=== PATIENT | female | born 1975 | race Caucasian/White ===

== ENCOUNTER 2016-06-21 15:00 | Emergency (ER) | payer MEDICARE, BC ==
[2016-06-21] MEDS ORDERED: PROMETHAZINE HCL 25 MG/ML VIAL IM ONE (16:16)
[2016-06-21] MEDS ORDERED: ORPHENADRINE CITRATE 60MG/2ML VIAL IM ONE (16:16)
[2016-06-21] MEDS ORDERED: METHYLPREDNISOLONE PF 125MG/VIAL IM ONE (16:16)
--- NOTE | 2016-06-21 17:58 | Emergency Department Record ---
History of Present Illness - General Chief Complaint: Neck Injury/Pain Stated Complaint: HEAD/NECK PAIN Time Seen by Provider: 06/21/16 16:08 Source: Patient Mode of Arrival: Ambulatory Limitations: No limitations - History of Present Illness Initial Comments: pt had a rhizotomy at [facility] 3 days ago and has had pain in her neck and a headache ever since. the headache is similar to those she gets. she stated that she was poked numerous times in the side of her neck for the procedure and this is where she is sore. MD Complaint: Neck pain Onset/Timin -: Days(s) Radiation: Left lateral Severity: Moderate Severity scale (1-10): 10 Quality: Stabbing Consistency: Constant Improves With: None Worsens With: None Associated Symptoms: Nausea Treatments Prior to Arrival: Acetaminophen Treatment Prior to Arrival Comment:: Tylenol taken at 1230 - Related Data Home Medications Medication Instructions Recorded Confirmed Last Taken Alprazolam [Xanax] 1 mg PO TID PRN 08/10/14 03/23/16 1 Day Ago Divalproex Sodium [Depakote] 500 mg PO QHS 08/26/14 03/23/16 1 Day Ago Duloxetine HCl [Cymbalta] 60 mg PO DAILY 08/03/15 03/23/16 1 Day Ago Allergies Allergy/AdvReac Type Severity Reaction Status Date / Time diphenhydramine HCl Allergy Intermediate BEHAVIORAL Verified 06/13/15 16:25 [From Benadryl] CHANGES ibuprofen [From Motrin] Allergy Intermediate RASH Verified 06/13/15 16:25 ketorolac tromethamine Allergy Intermediate RASH Verified 06/13/15 16:25 meperidine HCl Allergy Intermediate RASH Verified 06/13/15 16:25 Travel Screening - Travel/Exposure Within Last 30 Days Have you traveled within the last 30 days?: No - Travel/Exposure Within Last Year Have you traveled outside the [place] in the last year?: No - Additonal Travel Details Have you been exposed to anyone with a communicable illness?: No Review of Systems Reviewed: No additional complaints except as noted below Constitutional: Reports: As per HPI. Denies: Chills, Fever, Malaise, Night sweats, Weakness, Weight change Eyes: Reports: As per HPI. Denies: Eye discharge, Eye pain, Photophobia, Vision change ENT: Reports: As per HPI. Denies: Congestion, Dental pain, Ear pain, Epistaxis , Hearing loss, Throat pain Respiratory: Reports: As per HPI. Denies: Cough, Dyspnea, Hemoptysis, Stridor, Wheezes Cardiovascular: Reports: As per HPI. Denies: Arrhythmia, Chest pain, Dyspnea on exertion, Edema, Murmurs, Orthopnea, Palpitations, Paroxysmal nocturnal dyspnea, Rheumatic Fever, Syncope Endocrine: Reports: As per HPI. Denies: Fatigue, Heat or cold intolerance, Polydipsia, Polyuria Gastrointestinal: Reports: As per HPI. Denies: Abdominal pain, Constipation, Diarrhea, Hematemesis, Hematochezia, Melena, Nausea, Vomiting Genitourinary: Reports: As per HPI. Denies: Abnormal menses, Discharge, Dyspareunia, Dysuria, Frequency, Hematuria, Incontinence, Retention, Urgency Musculoskeletal: Reports: As per HPI. Denies: Arthralgia, Back pain, Gout, Joint swelling, Myalgia, Neck pain Skin: Reports: As per HPI. Denies: Bruising, Change in color, Change in hair/ nails, Lesions, Pruritus, Rash Neurological: Reports: As per HPI. Denies: Abnormal gait, Confusion, Headache, Numbness, Paresthesias, Seizure, Tingling, Tremors, Vertigo, Weakness Psychiatric: Reports: As per HPI. Denies: Anxiety, Auditory hallucinations, Depression, Homicidal thoughts, Suicidal thoughts, Visual hallucinations Hematological/Lymphatic: Reports: As per HPI. Denies: Anemia, Blood Clots, Easy bleeding, Easy bruising, Swollen glands Past Medical History - SOCIAL HISTORY Smoking Status: Heavy tobacco smoker (>10/day) Alcohol Use: None Drug Use: None - RESPIRATORY Hx Respiratory Disorders: No - CARDIOVASCULAR Hx Cardio Disorders: Yes Hx Deep Vein Thrombosis: Yes (right hand) - NEURO Hx Neuro Disorders: Yes Hx Headaches: Yes Hx Seizures: Yes - GI Hx GI Disorders: No - Hx Genitourinary Disorders: No - ENDOCRINE Hx Endocrine Disorders: No - MUSCULOSKELETAL Hx Musculoskeletal Disorders: Yes Comment:: Herniated disks C2-C7 - PSYCH Hx Psych Problems: Yes Hx Anxiety: Yes Hx Depression: Yes - HEMATOLOGY/ONCOLOGY Hx Hematology/Oncology Disorders: No Family Medical History Any Significant Family History?: Yes Hx Cancer: Mother Hx Diabetes: Father Physical Exam - General General Appearance: Alert, Oriented x3, Cooperative, Mild distress - Head Head exam: Normal inspection - Eye Eye exam: Normal appearance, PERRL, EOMI Pupils: Normal accommodation - ENT ENT exam: Normal exam, Mucous membranes moist, Normal external ear exam, Normal orophraynx Ear exam: Normal external inspection. negative: External canal tenderness Nasal Exam: Normal inspection. negative: Discharge, Sinus tenderness Mouth exam: Normal external inspection, Tongue normal Teeth exam: Normal inspection. negative: Dental caries Throat exam: Normal inspection. negative: Tonsillar erythema, Tonsillar exudate - Neck Neck exam: Full ROM, Tenderness (in musculature), Other (no spinal tenderness) - Respiratory Respiratory exam: Normal lung sounds bilaterally. negative: Respiratory distress - Cardiovascular Cardiovascular Exam: Regular rate, Normal rhythm, Normal heart sounds - GI/Abdominal GI/Abdominal exam: Soft, Normal bowel sounds. negative: Tenderness - Rectal Rectal exam: Deferred - exam: Deferred - Extremities Extremities exam: Normal inspection, Full ROM, Normal capillary refill. negative: Tenderness - Back Back exam: Reports: Normal inspection, Full ROM. Denies: Muscle spasm, Rash noted, Tenderness - Neurological Neurological exam: Alert, CN II-XII intact, Normal gait, Oriented X3 - Psychiatric Psychiatric exam: Normal affect, Normal mood - Skin Skin exam: Dry, Intact, Normal color, Warm Course Vital Signs 06/21/16 06/21/16 15:16 16:38 Temperature 98.3 F Pulse Rate 74 Pulse Rate [ 62 Pulse Ox Probe] Respiratory 15 15 Rate Blood Pressure 114/92 Blood Pressure 121/88 [Left Arm] Pulse Ox 97 95 - Reevaluation(s) Reevaluation #1: 06/21/16 17:59 pt feels much better Disposition Disposition: Discharge Clinical Impression: Somatic dysfunction of cervical region Disposition: Home, Self-Care Condition: (1) Good Instructions: Cervical Spine Strain (ED) Additional Instructions: follow up with family doctor and with pain clinic. return sooner if worse. Forms: Patient Portal Access
== END 2016-06-21 18:08 | disposition home or self-care (01) ==
LOC: ER 15:00
DX: M99.01 Segmental and somatic dysfunction of cervical region (principal); R51 Headache
CPT/HCPCS: 96372; 99283; J2360; J2550; J2930

== ENCOUNTER 2016-06-30 10:14 | Emergency (ER) | payer MEDICARE, BC ==
--- NOTE | 2016-06-30 10:29 | Emergency Department Record ---
History of Present Illness - General Chief Complaint: Neck Injury/Pain Stated Complaint: NECK PAIN AFTER INJECTION Time Seen by Provider: 06/30/16 10:27 Source: Patient Mode of Arrival: Ambulatory Limitations: No limitations - History of Present Illness Initial Comments: The patient is here due to worsening neck pain where she had her Rhizotomy injections. She had an injection about 2 weeks ago and another 4 days ago. Now her pain has been increasing over the last few days. She denies any arm or leg numbness, tingling, or weakness. She also denies any bowel or bladder issues. The patient has a long hx of similar issues and the pain although is worse is not different than her chronic pain. MD Complaint: Neck pain Onset/Timin -: Week(s) Severity scale (1-10): 10 Quality: Stabbing, Other Consistency: Constant Improves With: None Worsens With: None Context: Other Associated Symptoms: None Treatments Prior to Arrival: None - Related Data Home Medications Medication Instructions Recorded Confirmed Last Taken Alprazolam [Xanax] 1 mg PO TID PRN 08/10/14 06/30/16 1 Day Ago Divalproex Sodium [Depakote] 500 mg PO QHS 08/26/14 06/30/16 06/30/16 Duloxetine HCl [Cymbalta] 60 mg PO DAILY 08/03/15 06/30/16 06/30/16 Allergies Allergy/AdvReac Type Severity Reaction Status Date / Time diphenhydramine HCl Allergy Intermediate BEHAVIORAL Verified 06/13/15 16:25 [From Benadryl] CHANGES ibuprofen [From Motrin] Allergy Intermediate RASH Verified 06/13/15 16:25 ketorolac tromethamine Allergy Intermediate RASH Verified 06/13/15 16:25 meperidine HCl Allergy Intermediate RASH Verified 06/13/15 16:25 Travel Screening - Travel/Exposure Within Last 30 Days Have you traveled within the last 30 days?: No - Travel/Exposure Within Last Year Have you traveled outside the [place] in the last year?: No - Additonal Travel Details Have you been exposed to anyone with a communicable illness?: No - Travel Symptoms Symptom Screening: None Review of Systems Constitutional: Denies: Chills, Fever Eyes: Denies: Eye discharge ENT: Denies: Congestion, Throat pain Respiratory: Denies: Cough, Dyspnea Past Medical History - SOCIAL HISTORY Smoking Status: Heavy tobacco smoker (>10/day) Alcohol Use: None Drug Use: None - RESPIRATORY Hx Respiratory Disorders: No - CARDIOVASCULAR Hx Cardio Disorders: Yes Hx Deep Vein Thrombosis: Yes (right hand) - NEURO Hx Neuro Disorders: Yes Hx Headaches: Yes Hx Seizures: Yes - GI Hx GI Disorders: No - Hx Genitourinary Disorders: No - ENDOCRINE Hx Endocrine Disorders: No - MUSCULOSKELETAL Hx Musculoskeletal Disorders: Yes Comment:: Herniated disks C2-C7 - PSYCH Hx Psych Problems: Yes Hx Anxiety: Yes Hx Depression: Yes - HEMATOLOGY/ONCOLOGY Hx Hematology/Oncology Disorders: No Family Medical History Any Significant Family History?: No Hx Cancer: Mother Hx Diabetes: Father Physical Exam - General General Appearance: Alert, Oriented x3, Cooperative, Mild distress - Head Head exam: Atraumatic, Normocephalic, Normal inspection - Eye Eye exam: Normal appearance, PERRL - Neck Neck exam: Normal inspection, Tenderness (There is tenderness to the posterior cervical muscle area where the injections were performed.) - Respiratory Respiratory exam: Normal lung sounds bilaterally. negative: Respiratory distress - Cardiovascular Cardiovascular Exam: Regular rate, Normal rhythm, Normal heart sounds - GI/Abdominal GI/Abdominal exam: Soft, Normal bowel sounds. negative: Tenderness - Extremities Extremities exam: Normal inspection, Full ROM, Normal capillary refill. negative: Tenderness - Neurological Neurological exam: Alert, Normal gait, Oriented X3, Reflexes normal. negative: Abnormal gait, Altered, Motor sensory deficit - Psychiatric Psychiatric exam: Agitated Course Vital Signs 06/30/16 10:18 Temperature 98.8 F Pulse Rate 64 Respiratory 20 Rate Blood Pressure 106/83 Pulse Ox 100 - Reevaluation(s) Reevaluation #1: The patient is doing a little better at this time but is still having pain. I did discuss the issues with her and do feel she will an MRI. I did discuss the case with Dr. Abrams at [facility] and he does accept the patient in an ER to ER transfer. The patient's can drive her over to the ER. 06/30/16 11:31 06/30/16 11:34 Disposition Disposition: Transfer Clinical Impression: Cervical pain (neck) Disposition: Acute Care Hospital Transfer [place] [facility] [place] For Transfer: [place] Accepting Physician: Aliza Time Discussed w/Accepting Physician: 11:33 Condition: (2) Stable Additional Instructions: Please proceed to the [place] at [facility] [place] further eval. Forms: Patient Portal Access Time of Disposition: 11:33
[2016-06-30] MEDS ORDERED: ORPHENADRINE CITRATE 60MG/2ML VIAL IM ONE (10:34)
[2016-06-30] MEDS ORDERED: LIDOCAINE 5% PATCH TOP ONE (10:34)
[2016-06-30] MEDS ORDERED: METHYLPREDNISOLONE PF 125MG/VIAL IM ONE (10:34)
== END 2016-06-30 12:17 | disposition short-term general hospital (02) ==
LOC: ER 10:14
DX: M54.2 Cervicalgia (principal)
CPT/HCPCS: 96372; 99285; J2360; J2930

== ENCOUNTER 2016-11-02 15:10 | Emergency (ER) | payer MEDICARE, BC ==
[2016-11-02] MEDS ORDERED: METHYLPREDNISOLONE PF 125MG/VIAL IM ONE (17:42)
[2016-11-02] MEDS ORDERED: ONDANSETRON HCL IV 4 MG/2 ML VIAL IM ONE (17:42)
[2016-11-02] MEDS ORDERED: ORPHENADRINE CITRATE 60MG/2ML VIAL IM ONE (17:42)
--- NOTE | 2016-11-02 17:48 | Emergency Department Record ---
History of Present Illness - General Chief Complaint: Headache Migraine Stated Complaint: HEADACHE FROM NECK INJECTIONS Time Seen by Provider: 11/02/16 16:33 Source: Patient, RN Mode of Arrival: Ambulatory - History of Present Illness Initial Comments: migraine headache and she had a neck injection [address] 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 No fevers and no vomiting just nausea. MD Complaint: "Migraine" Onset/Timin -: Days(s) Onset Description: Gradual Location: Left, Neck, Temporal Severity: Moderate Severity scale (1-10): 10 Quality: Sharp, Other Consistency: Constant Improves With: Nothing Worsens With: Light, Movement of head/neck Associated Symptoms: Photophobia Treatments Prior to Arrival: Acetaminophen Treatment Prior to Arrival Comment:: 1400 today - Related Data Home Medications Medication Instructions Recorded Confirmed Last Taken Alprazolam [Xanax] 1 mg PO TID PRN 08/10/14 11/02/16 11/02/16 Divalproex Sodium [Depakote] 500 mg PO QHS 08/26/14 11/02/16 11/02/16 Albuterol Sulfate [Proair Hfa] 2 puff INH ASDIR 11/02/16 11/02/16 11/02/16 Lidocaine [Lidocaine] 1 patch TOP ASDIR 11/02/16 11/02/16 11/02/16 Morphine Sulfate [Morphine Sulfate 15 mg PO ASDIR 11/02/16 11/02/16 11/02/16 ER] Morphine Sulfate [Morphine Sulfate] 15 mg PO ASDIR 11/02/16 11/02/16 11/02/16 Allergies Allergy/AdvReac Type Severity Reaction Status Date / Time diphenhydramine HCl Allergy Intermediate BEHAVIORAL Verified 11/02/16 16:45 [From Benadryl] CHANGES ibuprofen [From Motrin] Allergy Intermediate RASH Verified 11/02/16 16:45 ketorolac tromethamine Allergy Intermediate RASH Verified 11/02/16 16:45 meperidine HCl Allergy Intermediate RASH Verified 11/02/16 16:45 Travel Screening - Travel/Exposure Within Last 30 Days Have you traveled within the last 30 days?: No - Travel/Exposure Within Last Year Have you traveled outside the [place] in the last year?: No - Additonal Travel Details Have you been exposed to anyone with a communicable illness?: No - Travel Symptoms Symptom Screening: None Review of Systems Reviewed: No additional complaints except as noted below Constitutional: Reports: As per HPI. Denies: Chills, Fever, Malaise, Night sweats, Weakness, Weight change Eyes: Reports: As per HPI. Denies: Eye discharge, Eye pain, Photophobia, Vision change ENT: Reports: As per HPI. Denies: Congestion, Dental pain, Ear pain, Epistaxis , Hearing loss, Throat pain Respiratory: Reports: As per HPI. Denies: Cough, Dyspnea, Hemoptysis, Stridor, Wheezes Cardiovascular: Reports: As per HPI. Denies: Arrhythmia, Chest pain, Dyspnea on exertion, Edema, Murmurs, Orthopnea, Palpitations, Paroxysmal nocturnal dyspnea, Rheumatic Fever, Syncope Endocrine: Reports: As per HPI. Denies: Fatigue, Heat or cold intolerance, Polydipsia, Polyuria Gastrointestinal: Reports: As per HPI. Denies: Abdominal pain, Constipation, Diarrhea, Hematemesis, Hematochezia, Melena, Nausea, Vomiting Genitourinary: Reports: As per HPI. Denies: Abnormal menses, Discharge, Dyspareunia, Dysuria, Frequency, Hematuria, Incontinence, Retention, Urgency Musculoskeletal: Reports: As per HPI. Denies: Arthralgia, Back pain, Gout, Joint swelling, Myalgia, Neck pain Skin: Reports: As per HPI. Denies: Bruising, Change in color, Change in hair/ nails, Lesions, Pruritus, Rash Neurological: Reports: As per HPI. Denies: Abnormal gait, Confusion, Headache, Numbness, Paresthesias, Seizure, Tingling, Tremors, Vertigo, Weakness Psychiatric: Reports: As per HPI. Denies: Anxiety, Auditory hallucinations, Depression, Homicidal thoughts, Suicidal thoughts, Visual hallucinations Hematological/Lymphatic: Reports: As per HPI. Denies: Anemia, Blood Clots, Easy bleeding, Easy bruising, Swollen glands Past Medical History - SOCIAL HISTORY Smoking Status: Heavy tobacco smoker (>10/day) Alcohol Use: None Drug Use: None - RESPIRATORY Hx Respiratory Disorders: No - CARDIOVASCULAR Hx Cardio Disorders: Yes Hx Deep Vein Thrombosis: Yes (right hand) - NEURO Hx Neuro Disorders: Yes Hx Headaches: Yes Hx Seizures: Yes - GI Hx GI Disorders: No - Hx Genitourinary Disorders: No - ENDOCRINE Hx Endocrine Disorders: No - MUSCULOSKELETAL Hx Musculoskeletal Disorders: Yes Comment:: Herniated disks C2-C7 - PSYCH Hx Psych Problems: Yes Hx Anxiety: Yes Hx Depression: Yes - HEMATOLOGY/ONCOLOGY Hx Hematology/Oncology Disorders: No Family Medical History Any Significant Family History?: Yes Hx Cancer: Mother Hx Diabetes: Father Physical Exam - General General Appearance: Alert, Oriented x3, Cooperative, No acute distress - Head Head exam: Normal inspection - Eye Eye exam: Normal appearance, PERRL Pupils: Normal accommodation - ENT ENT exam: Normal exam, Mucous membranes moist, Normal external ear exam, Normal orophraynx, TM's normal bilaterally Ear exam: Normal external inspection. negative: External canal tenderness Nasal Exam: Normal inspection. negative: Discharge, Sinus tenderness Mouth exam: Normal external inspection, Tongue normal Teeth exam: Normal inspection. negative: Dental caries Throat exam: Normal inspection. negative: Tonsillar erythema, Tonsillar exudate - Neck Neck exam: Normal inspection, Full ROM. negative: Tenderness - Respiratory Respiratory exam: Normal lung sounds bilaterally. negative: Respiratory distress - Cardiovascular Cardiovascular Exam: Regular rate, Normal rhythm, Normal heart sounds - GI/Abdominal GI/Abdominal exam: Soft, Normal bowel sounds. negative: Tenderness - Rectal Rectal exam: Deferred - exam: Deferred - Extremities Extremities exam: Normal inspection, Full ROM, Normal capillary refill. negative: Tenderness - Back Back exam: Reports: Normal inspection, Full ROM. Denies: Muscle spasm, Rash noted, Tenderness - Neurological Neurological exam: Alert, Normal gait, Oriented X3, Reflexes normal - Psychiatric Psychiatric exam: Normal affect, Normal mood - Skin Skin exam: Dry, Intact, Normal color, Warm, Other (injection site C7 area left side looks good , No signs of infection.) Course Vital Signs 11/02/16 11/02/16 16:04 16:50 Temperature 97.7 F 97.7 F Pulse Rate [ 57 L Pulse Ox Probe] Respiratory 18 18 Rate Blood Pressure 99/67 [Left Arm] Pulse Ox 99 99 - Reevaluation(s) Reevaluation #1: patient states this feels like her typical headache but worse. 11/02/16 17:46 Reevaluation #2: feeling better 11/02/16 18:14 Disposition Clinical Impression: Cervical pain (neck) Migraine Qualifiers: Migraine type: without aura Status migrainosus presence: without status migrainosus Intractability: not intractable Qualified Code(s): G43.009 - Migraine without aura, not intractable, without status migrainosus Clinical Impression: (Ruled Out): Headache Condition: (1) Good Instructions: Migraine Headache (ED) Additional Instructions: follow up with Dr. Sarabia tomorrow as planned Forms: Patient Portal Access Time of Disposition: 18:20
== END 2016-11-02 18:27 | disposition home or self-care (01) ==
LOC: ER 15:10
DX: G43.009 Migraine without aura, not intractable, without status migrainosus (principal); G89.29 Other chronic pain; M54.2 Cervicalgia; R11.0 Nausea; H53.149 Visual discomfort, unspecified
CPT/HCPCS: 99283 ×2; 96372; J2405; J2360; J2930

== ENCOUNTER 2017-01-08 15:00 | Emergency (ER) | payer BC, MEDICARE, OTHER ==
--- NOTE | 2017-01-08 15:37 | Emergency Department Record ---
History of Present Illness - General Chief Complaint: Back Pain/Injury Stated Complaint: BACK PAIN Time Seen by Provider: 01/08/17 15:02 Source: Patient Mode of Arrival: Ambulatory Limitations: No limitations - History of Present Illness Initial Comments: 41 yo female presents to ED with a CC of low back pain following a lifting injury at work 6 days ago. Patient reports that she lifted heavy water bottles 6 days ago at work resulting in injury. Patient reports pain radiating down her right leg posteriorly, denies lower extremity weakness or urinary incontinence. Patient reports taking Tylenol, ice, and heat for her symptoms but reports now having "spasms" of pain to her lower back. MD Complaint: Back pain Onset/Timin -: Days(s) Similar Symptoms Previously: Yes Place: Work Radiation: Right leg Severity: Moderate Quality: Aching Consistency: Constant Improves With: None Worsens With: Immobilization, Movement, Sitting upright, Walking Context: While lifting, Other Treatments Prior to Arrival: Acetaminophen - Related Data Home Medications Medication Instructions Recorded Confirmed Last Taken Alprazolam [Xanax] 1 mg PO TID PRN 08/10/14 01/08/17 01/08/17 Divalproex Sodium [Depakote] 500 mg PO QHS 08/26/14 01/08/17 01/07/17 Albuterol Sulfate [Proair Hfa] 2 puff INH ASDIR 11/02/16 01/08/17 11/02/16 Lidocaine [Lidocaine] 1 patch TOP ASDIR 11/02/16 01/08/17 01/07/17 Morphine Sulfate [Morphine Sulfate 15 mg PO ASDIR 11/02/16 01/08/17 01/03/17 ER] Morphine Sulfate [Morphine Sulfate] 15 mg PO ASDIR 11/02/16 01/08/17 01/03/17 Hydrocodone/Acetaminophen [Tigrett 1 tab PO Q8H PRN 01/08/17 01/08/17 01/07/17 10mg/325mg] Allergies Allergy/AdvReac Type Severity Reaction Status Date / Time diphenhydramine HCl Allergy Intermediate BEHAVIORAL Verified 11/02/16 16:45 [From Benadryl] CHANGES ibuprofen [From Motrin] Allergy Intermediate RASH Verified 11/02/16 16:45 ketorolac tromethamine Allergy Intermediate RASH Verified 11/02/16 16:45 meperidine HCl Allergy Intermediate RASH Verified 11/02/16 16:45 Travel Screening - Travel/Exposure Within Last 30 Days Have you traveled within the last 30 days?: No - Travel/Exposure Within Last Year Have you traveled outside the [place] in the last year?: No - Additonal Travel Details Have you been exposed to anyone with a communicable illness?: No - Travel Symptoms Symptom Screening: None Review of Systems Constitutional: Denies: Chills, Fever, Malaise, Night sweats Eyes: Denies: Eye discharge, Eye pain ENT: Denies: Congestion, Ear pain, Epistaxis Respiratory: Denies: Cough, Dyspnea Cardiovascular: Denies: Chest pain, Dyspnea on exertion Endocrine: Denies: Fatigue, Heat or cold intolerance Gastrointestinal: Denies: Abdominal pain, Nausea, Vomiting Genitourinary: Denies: Incontinence, Retention Musculoskeletal: Reports: Back pain. Denies: Arthralgia, Gout, Joint swelling Skin: Denies: Bruising, Change in color, Change in hair/nails Neurological: Denies: Abnormal gait, Confusion, Headache, Seizure Psychiatric: Denies: Anxiety Hematological/Lymphatic: Denies: Anemia, Blood Clots Past Medical History - SOCIAL HISTORY Smoking Status: Current every day smoker Alcohol Use: None Drug Use: None - RESPIRATORY Hx Respiratory Disorders: No - CARDIOVASCULAR Hx Cardio Disorders: Yes Hx Deep Vein Thrombosis: Yes (right hand) - NEURO Hx Neuro Disorders: Yes Hx Headaches: Yes Hx Seizures: Yes - GI Hx GI Disorders: No - Hx Genitourinary Disorders: No - ENDOCRINE Hx Endocrine Disorders: No - MUSCULOSKELETAL Hx Musculoskeletal Disorders: Yes Comment:: Herniated disks C2-C7 - PSYCH Hx Psych Problems: Yes Hx Anxiety: Yes Hx Depression: Yes - HEMATOLOGY/ONCOLOGY Hx Hematology/Oncology Disorders: No Family Medical History Any Significant Family History?: No Hx Cancer: Mother Hx Diabetes: Father Physical Exam - General General Appearance: Alert, Oriented x3, Cooperative, Mild distress Limitations: No limitations - Head Head exam: Atraumatic, Normocephalic, Normal inspection Head exam detail: negative: Abrasion, Contusion, Christie's sign, General tenderness, Hematoma, Laceration - Eye Eye exam: Normal appearance. negative: Conjunctival injection, Periorbital swelling, Periorbital tenderness, Scleral icterus - ENT Ear exam: negative: Auricular hematoma, Auricular trauma Nasal Exam: negative: Active bleeding, Discharge, Dried blood, Foreign body Mouth exam: negative: Drooling, Laceration, Muffled voice, Tongue elevation - Neck Neck exam: Normal inspection. negative: Meningismus, Tenderness - Respiratory Respiratory exam: Normal lung sounds bilaterally. negative: Rales, Respiratory distress, Rhonchi, Stridor - Cardiovascular Cardiovascular Exam: Regular rate, Normal rhythm, Normal heart sounds - GI/Abdominal GI/Abdominal exam: Soft. negative: Rebound, Rigid, Tenderness - Rectal Rectal exam: Deferred - exam: Deferred - Extremities Extremities exam: Normal inspection. negative: Calf tenderness, Pedal edema, Tenderness - Back Back exam: Reports: Paraspinal tenderness (TTP at the SI joint on examination). Denies: CVA tenderness (R), CVA tenderness (L) - Neurological Neurological exam: Alert, Normal gait, Oriented X3 - Psychiatric Psychiatric exam: Normal affect, Normal mood - Skin Skin exam: Normal color. negative: Abrasion Type of lesion: negative: abrasion Course Vital Signs 01/08/17 15:09 Temperature 98.2 F Pulse Rate 70 Respiratory 16 Rate Blood Pressure 115/72 Pulse Ox 97 - Reevaluation(s) Reevaluation #1: 01/08/17 15:35 MAPS reviewed: Patient filled #90 10 mg Tigrett tablets and #120 Ativan 1 mg tablets on 01/06/17. When asked about this, patient initially states that she has not taken any of this medication, however then stated that she did take the Tigrett but vomited her medication back up. Will obtain radiographs of the low back and reassess. Reevaluation #2: 01/08/17 16:09 Patient is back from radiology, results pending. Offered the patient Zofran for her nausea symptoms so that she could take her Tigrett 10 mg when she gets home, patient declined stating "this was a waste". I explained to the patient that we have performed radiographs to exclude an acute injury, patient states "just give me my discharge papers, I want to leave". Patient was encouraged to continue her Xanax and Tigrett at home for her symptoms prior to discharge. Patient responded by slamming the door to Room #5 closed and then open awaiting her discharge instructions. 01/08/17 16:13 Reevaluation #3: 01/08/17 16:14 Lumbar Spine: Minor DDD, minor scoliosis, nothing acute. Disposition Disposition: Discharge Clinical Impression: Low back strain Qualifiers: Encounter type: initial encounter Qualified Code(s): S39.012A - Strain of muscle, fascia and tendon of lower back, initial encounter Disposition: Home, Self-Care Condition: (2) Stable Instructions: Low Back Strain (ED) Additional Instructions: Return to ED if your symptoms worsen or if you have any concerns. Continue your Tigrett 10 mg and Xanax 1 mg as previously prescribed. Follow-up with your family doctor in 3-5 days as directed. Forms: Patient Portal Access Time of Disposition: 15:38 Quality - Quality Measures Quality Measures: N/A - Blood Pressure Screening Does Patient Have Any of the Following: No Blood Pressure Classification: Normal BP Reading Systolic Measurement: 115 Diastolic Measurement: 72 Screening for High Blood Pressure: < Normal BP, F/U Not Required > [[id number]]
--- NOTE | 2017-01-10 21:05 | RADIOLOGY REPORT ---
EXAM: LUMBAR SPINE / AP LAT HISTORY: BACK PAIN. TECHNIQUE: Frontal and lateral views of the lumbar spine. COMPARISON: 03/09/15 lumbar spine. FINDINGS: Mild levoconvex scoliosis. Transitional L5 segment, however, five lumbar-type vertebral bodies are present. Height and alignment is preserved. Minor degenerative changes at L5-S1 and L2-L3. Sacroiliac joints are preserved. IMPRESSION: MILD LEVOCONVEX SCOLIOSIS AND MINOR DEGENERATIVE CHANGE. [facility]: [id number] [facility]
== END 2017-01-08 16:24 | disposition home or self-care (01) ==
LOC: ER 15:00
DX: S39.012A Strain of muscle, fascia and tendon of lower back, initial encounter (principal); X50.0XXA Overexertion from strenuous movement or load, initial encounter; Y99.0 Civilian activity done for income or pay
CPT/HCPCS: 72100; 99283